=== PATIENT | male | born 1980 | race Caucasian/White ===

== ENCOUNTER → 2021-10-24 | Outpatient (CLI) | payer OTHER ==
--- NOTE | 2021-10-24 17:15 | RAD ---
EXAM: Bilateral feet, 3 views. HISTORY: Pain. COMPARISON: None. FINDINGS: 3 views of both feet are obtained. There is no acute fracture, dislocation or subluxation. There is minimal degenerative spurring involving the left first metatarsal phalangeal joint. IMPRESSION: 1. No acute osseous finding. 2. 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 Electronically signed by: Peace Dwyer MD (10/24/2021 5:13 PM) [id number]
== END ==
LOC: RAD 13:46
PROVIDERS: ATTEND Podiatrist
DX: M17.12 Unilateral primary osteoarthritis, left knee (principal); M79.671 Pain in right foot
CPT/HCPCS: 73630-50